=== PATIENT | male | born 1975 | race Caucasian/White ===

== ENCOUNTER 2024-04-19 14:46 | Emergency (ER) | payer MEDICAID, OTHER ==
[~2024-04-19] VITALS: Ht 167.6 cm; Wt 73.0 kg
[2024-04-19 14:52] VITALS: TEMP 97.7; O2SAT 95
[2024-04-19 15:54] LABS: BASOPHILS % 0.7 % (0.0-2.0); EOSINOPHILS % 3.7 % (0.0-5.0); HEMATOCRIT. 50.2 % (42.0-52.0); HEMOGLOBIN. 16.7 g/dL (14.0-18.0); LYMPHOCYTES % 20.8 % (20.0-50.0); MEAN CORPUSCULAR HGB CONC 33.3 g/dL (31.0-37.0); MEAN CORPUSCULAR VOLUME 99.1 fL (80.0-94.0); MEAN PLATELET VOLUME 7.6 fl (7.4-10.4); NEUTROPHILS % 68.8 % (40.0-76.0); PLATELET 226 x1000/uL (130-400); RED BLOOD CELL COUNT 5.07 mill/uL (4.7-6.1); WHITE BLOOD COUNT 7.3 x1000/uL (4.5-11.0)
[2024-04-19 15:57] LABS: CHLORIDE 105 mEq/L (98-107); POTASSIUM 3.8 mEq/L (3.5-5.1); SODIUM 140 mEq/L (136-145)
[2024-04-19 15:58] LABS: CARBON DIOXIDE 26 mEq/L (21-32)
[2024-04-19 15:59] LABS: CALCIUM 8.8 mg/dL (8.7-10.4)
[2024-04-19 16:03] LABS: CREATININE 0.8 mg/dL (0.6-1.3); GLUCOSE 81 mg/dL (70-105)
[2024-04-19 16:04] LABS: ETHANOL BLOOD 263 mg/dL (<10)
[2024-04-19 16:05] LABS: ALANINE AMINOTRANSFERASE 75 IU/L (10-49); ALBUMIN 4.1 g/dL (3.2-4.8); ASPARTATE AMINOTRANSFERASE 165 IU/L (<34); BILIRUBIN DIRECT 0.5 mg/dL (<=3.0)
[2024-04-19 16:06] LABS: UREA NITROGEN BLOOD < 5 mg/dL (9-23)
[2024-04-19 19:06] VITALS: BP 118/68; PULSE 80; RESP 20; O2SAT 98
[2024-04-19 19:12] LABS: TROPONIN I HIGH SENSITIVITY 4 ng/L (3.0-53)
== END 2024-04-19 19:07 | disposition home or self-care (01) ==
LOC: ER 15:16
DX: T67.5XXA Heat exhaustion, unspecified, initial encounter (principal); F10.129 Alcohol abuse with intoxication, unspecified; X58.XXXA Exposure to other specified factors, initial encounter; Y93.89 Activity, other specified; Y92.89 Other specified places as the place of occurrence of the external cause; Y99.8 Other external cause status; Y90.8 Blood alcohol level of 240 mg/100 ml or more
CPT/HCPCS: 36415; 80048; 80076; 80320; 84484; 85025; 93005; 99284; G0480